=== PATIENT | male | born 1955 | race Caucasian/White ===

== ENCOUNTER 2017-12-20 06:59 | Emergency (ER) | payer OTHER ==
[~2017-12-20] VITALS: Ht 177.8 cm; Wt 86.2 kg
[~2017-12-20 06:59] MED LIST: ACETAMINOPHEN325 M1 PO; ALEVE220 M1 PO; ASPIR 8181 M1; ATORVASTATIN CA40 MG; BACTROBAN CREAM30 G1 TOP; CIPRO500 MG PO; COREG3.125 MG PO; DEEP SEA NASAL44 M1 NASAL; DULERA 100 MCG/13 GM; HYDROCODON-ACE1 EAC5 PO; LASIX 40 MG TAB40 M2 PO; LEVAQUIN 500 M500 M2 PO; MAPAP325 MG; MIRALAX17 G1; MUCINEX600 MG PO; NICOTINE TRANSD21 M1; NORCO 5-325 TA1 EACH PO; OMEPRAZOLE 20 M20 M1 PO; PLAVIX 75 MG TA75 M1 PO; POTASSIUM20 PO; PREDNISONE 20 M20 M1 PO; VANCOMYCIN1 GM/200 M IV; VENTOLIN HFA 1818 GM INH; VENTOLIN HFA INH8 GM INH; WAL-PROXEN220 MG; ZPAK PO
[2017-12-20] MEDS ORDERED: DURAGESIC1 EAC2 TRANSDERM (07:21)
[2017-12-20] MEDS ORDERED: NEURONTIN 300300 M1 PO (07:22)
[2017-12-20] MEDS ORDERED: CLEOCIN HCL150 MG PO (09:03)
== END 2017-12-20 10:19 | disposition home or self-care (01) ==
LOC: ER 06:59
DX: S81.011A Laceration without foreign body, right knee, initial encounter (principal); W19.XXXA Unspecified fall, initial encounter; Y93.89 Activity, other specified; Y92.89 Other specified places as the place of occurrence of the external cause; Y99.8 Other external cause status; F17.210 Nicotine dependence, cigarettes, uncomplicated; Z88.1 Allergy status to other antibiotic agents

== ENCOUNTER 2017-12-20 15:19 | Emergency (ER) | payer OTHER ==
[~2017-12-20] VITALS: Ht 177.8 cm; Wt 86.2 kg
[~2017-12-20 15:19] MED LIST changes: +CLEOCIN HCL150 MG PO; +DURAGESIC1 EAC2 TRANSDERM; +NEURONTIN 300300 M1 PO
== END 2017-12-20 17:49 | disposition home or self-care (01) ==
LOC: ER 15:19
DX: S81.012A Laceration without foreign body, left knee, initial encounter (principal); S81.011A Laceration without foreign body, right knee, initial encounter; F17.210 Nicotine dependence, cigarettes, uncomplicated; Z90.49 Acquired absence of other specified parts of digestive tract; Z88.1 Allergy status to other antibiotic agents; X58.XXXA Exposure to other specified factors, initial encounter; Y93.89 Activity, other specified; Y92.89 Other specified places as the place of occurrence of the external cause; Y99.8 Other external cause status

== ENCOUNTER 2018-12-31 15:01 | Emergency (ER) | payer OTHER ==
[~2018-12-31] VITALS: Ht 177.8 cm; Wt 63.5 kg
[2018-12-31 15:02] VITALS: BP 111/71
== END 2019-01-01 00:15 | disposition home or self-care (01) ==
LOC: ER 15:01
DX: S10.91XA Abrasion of unspecified part of neck, initial encounter (principal); Z96.642 Presence of left artificial hip joint; F17.210 Nicotine dependence, cigarettes, uncomplicated; Z88.1 Allergy status to other antibiotic agents; W07.XXXA Fall from chair, initial encounter; Y93.89 Activity, other specified; Y92.89 Other specified places as the place of occurrence of the external cause; Y99.8 Other external cause status